=== PATIENT | female | born 1985 | race Caucasian/White ===

== ENCOUNTER 2020-04-28 14:01 | Emergency (ER) | payer OTHER, SELFPAY ==
[2020-04-28 14:03] VITALS: BP 145/105; PULSE 99; RESP 18; TEMP 36.8; O2SAT 97; BMI 29.7
--- NOTE | 2020-04-28 14:12 | XR_ITS ---
WS: [id number] Portable AP upright chest, 04/28/2020 Clinical Data: CP Comparison: Chest, 05/05/2006. Findings: No nodules, masses or effusions are seen. The heart is normal. The pulmonary vascularity is not increased. No pneumonia or pneumothorax is seen. 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 XR/XR chest 1V portable [id number] Impression: Negative chest.
--- NOTE | 2020-04-28 14:13 | ECG_ITS ---
[facility] Test Date: 2020-04-28 Pat Name: Gabrielle Coleman Department: Room: Gender: Female Tenterer: : 1985 Requested By: Praveen Fischer Order Number: [id number] Freddy MD: Stone Cheek M.D. Measurements Intervals [place] Rate: 88 P: 62 OK: 195 QRS: 48 QRSD: 97 T: 58 QT: 365 QTc: 442 Interpretive Statements SINUS RHYTHM No previous ECG available for comparison Electronically Signed On 04-28-2020 18:37:20 CDT by Stone Cheek M.D. [email or web address]
--- NOTE | 2020-04-28 14:21 | ED_ITS ---
HPI - Arrhythmia/Palpitations General: Chief Complaint: Arrhythmia/Palpitations Stated Complaint: cp/dizzyness/ heart racing Time Seen by Provider: 04/28/20 14:12 History of Present Illness: HPI narrative: She relates an episode of while sitting and eating today her heart started racing and she felt lightheaded and is gone on for a while and she states this is her third episode in the last 2 weeks. said that she possibly passed out while going to the bathroom the other day and she said she was laying in the floor and woke up.. Patient had a full hysterectomy. Family history of thyroid problems. Denies diabetes. Denies shortness of breath. Denies any bleeding or fluid loss exercise regularly drinks about 100 fluid ounces of water a day. Mom relates that after she takes warm bath which she takes often she usually feels dizzy upon standing. Has a smart watch which has EKG on she said EKG showed inconclusive results normally just shows tachycardia MD complaint: heart racing Onset (ago): week(s) Duration: intermittent Severity: mild Context: other (While eating) Associated symptoms: Reports other (Has stressful job); Deny anxiety, nausea or vomiting Review of Systems Const: Denies: fever(s), chills or body aches Eyes: Denies: change in vision or blurry vision ENMT: Denies: throat pain or nasal congestion Card: Reports: palpitations and irregular heart rhythm; Denies: chest pain or dyspnea on exertion Resp: Denies: dyspnea, productive cough or non-productive cough GI: Denies: abdominal pain, nausea or vomiting Musc: Denies: extremity pain Skin/Breast: Denies: rash Neuro: Reports: dizziness; Denies: headache(s) Psych: Denies: anxiety or depression Josh/Lymph: Denies: easy bruising Physical Exam Const: COMMON NORMALS: no acute distress, average body habitus and patient oriented x3 HENMT: COMMON NORMALS: normocephalic HEAD & SCALP: normal to inspection and normocephalic FACE & SINUS: normal facial exam Eye: COMMON NORMALS: conjunctivae normal GENERAL EYE: appearance normal, both eyes and all related structures CONJUNCTIVA: Yes conjunctivae normal Neck/C-Spine: COMMON NORMALS: no JVD Chest: COMMONS NORMALS: normal inspection of the chest Resp: COMMON NORMALS: normal respiratory effort and clear to auscultation bilaterally AUSCULTATION: clear to auscultation bilaterally Cardio: COMMON NORMALS: no JVD, regular rate and regular rhythm RATE: regular rate RHYTHM: regular rhythm GI: COMMON NORMALS: Normal to inspection, nondistended, normoactive bowel sounds present Extremity: COMMON NORMALS: normal to inspection and full ROM Neuro: COMMON NORMALS: patient oriented x3 Course Vital Signs: Vital signs: Vital Signs Temperature 98.2 F 04/28/20 14:03 Pulse Rate 79 04/28/20 16:40 Respiratory Rate 16 04/28/20 16:40 Blood Pressure 103/68 04/28/20 16:40 Pulse Oximetry 96 04/28/20 16:40 MDM - Arrhythmia/Palpitations Lab Data: Labs: Lab Results 04/28/20 04/28/20 04/28/20 Range/Units 14:38 14:38 14:38 WBC 6.1 (4.0-10.0) 10^3/ uL RBC 4.79 (4.1-5.3) 10^6/u L Hgb 14.6 (11.5-15.3) g/dL Hct 44.1 (37.0-47.0) % MCV 92.1 (81-99) fL MCH 30.5 (28.0-34.0) pg MCHC 33.1 (30.0-36.0) g/dL RDW 12.6 (12.1-15.1) % Plt Count 220 (130-400) 10^3/c mm MPV 11.1 H (7.4-10.4) fL Neut % (Auto) 55.4 % Lymph % (Auto) 36.1 % Jackson % (Auto) 6.9 % Eos % (Auto) 0.8 % Baso % (Auto) 0.5 % Neut # (Auto) 3.36 (1.8-7.7) 10^3/u L Lymph # (Auto) 2.2 (0.8-4.8) 10^3/u L Jackson # (Auto) 0.4 (0.2-0.9) 10^3/u L Eos # (Auto) 0.1 (0.0-0.8) 10^3/u L Baso # (Auto) 0.0 (0.0-0.1) 10^3/u L Nucleated RBC % (a uto) 0 % Nucleated RBCs # 0.0 /100WBC PT 13.10 (12.1-14.9) SECO NDS INR 0.96 (0.8-1.2) Sodium 143 (136-145) mmol/L Potassium 4.1 (3.5-5.1) mmol/L Chloride 103 (98-107) mmol/L Carbon Dioxide 28 (22-29) mmol/L Anion Gap 16.1 (5-19) BUN 16 (6-20) mg/dL Creatinine 0.8 (0.5-0.9) mg/dL GFR Calculation 82.6 L (90-130) mL/min Glucose 112 (65-115) mg/dL Calculated Osmolal ity 298 H (285-295) mOsm/k g Calcium 10.0 (8.5-10.5) mg/dL Total Bilirubin 0.3 (0.15-1.2) mg/dL AST 15 (0-32) U/L ALT 12 (0-33) U/L Alkaline Phosphata se 67 (35-105) IU/L Troponin T Baselin e (0-10) ng/L Total Protein 6.6 (6.6-8.7) g/dL Albumin 4.7 (3.5-5.2) g/dL Globulin 1.9 (1.3-4.6) g/dL TSH 1.47 (0.27-4.20) uIU/ mL Free T4 1.52 (0.82-1.77) ng/d L Free T3 3.3 (2.0-4.4) PG/ML Urine Color (Yellow) Urine Appearance (CLEAR) Urine pH (5-7) Ur Specific Gravit y (1.005-1.030) Urine Protein (Negative) Urine Glucose (UA) (Normal) Urine Ketones (Negative) Urine Blood (Negative) Urine Nitrate (Negative) Urine Bilirubin (Negative) Urine Urobilinogen (Negative) mg/dL Ur Leukocyte Judie ase (Negative) 04/28/20 04/28/20 Range/Units 14:38 14:38 WBC (4.0-10.0) 10^3/ uL RBC (4.1-5.3) 10^6/u L Hgb (11.5-15.3) g/dL Hct (37.0-47.0) % MCV (81-99) fL MCH (28.0-34.0) pg MCHC (30.0-36.0) g/dL RDW (12.1-15.1) % Plt Count (130-400) 10^3/c mm MPV (7.4-10.4) fL Neut % (Auto) % Lymph % (Auto) % Jackson % (Auto) % Eos % (Auto) % Baso % (Auto) % Neut # (Auto) (1.8-7.7) 10^3/u L Lymph # (Auto) (0.8-4.8) 10^3/u L Jackson # (Auto) (0.2-0.9) 10^3/u L Eos # (Auto) (0.0-0.8) 10^3/u L Baso # (Auto) (0.0-0.1) 10^3/u L Nucleated RBC % (a uto) % Nucleated RBCs # /100WBC PT (12.1-14.9) SECO NDS INR (0.8-1.2) Sodium (136-145) mmol/L Potassium (3.5-5.1) mmol/L Chloride (98-107) mmol/L Carbon Dioxide (22-29) mmol/L Anion Gap (5-19) BUN (6-20) mg/dL Creatinine (0.5-0.9) mg/dL GFR Calculation (90-130) mL/min Glucose (65-115) mg/dL Calculated Osmolal ity (285-295) mOsm/k g Calcium (8.5-10.5) mg/dL Total Bilirubin (0.15-1.2) mg/dL AST (0-32) U/L ALT (0-33) U/L Alkaline Phosphata se (35-105) IU/L Troponin T Baselin e 6 (0-10) ng/L Total Protein (6.6-8.7) g/dL Albumin (3.5-5.2) g/dL Globulin (1.3-4.6) g/dL TSH (0.27-4.20) uIU/ mL Free T4 (0.82-1.77) ng/d L Free T3 (2.0-4.4) PG/ML Urine Color Yellow (Yellow) Urine Appearance Clear (CLEAR) Urine pH 5 (5-7) Ur Specific Gravit y 1.010 (1.005-1.030) Urine Protein Neg (Negative) Urine Glucose (UA) Norm (Normal) Urine Ketones Negative (Negative) Urine Blood Neg (Negative) Urine Nitrate Negative (Negative) Urine Bilirubin Neg (Negative) Urine Urobilinogen Norm (Negative) mg/dL Ur Leukocyte Judie ase Negative (Negative) Discharge Plan Discharge Patient Disposition: Home Clinical Impression: Acute dehydration Condition: Stable Prescriptions: No Action No Known Home Medications RF: 0 Discharge Orders: Discharge Order (Routine); Ordered 04/28/20 Ordered By: Praveen Fischer Referrals: Elba Guillory FNP [Primary Care Provider] - Discharge Diet: Usual diet and As Directed Discharge Activity: Resume usual activity Patient Instructions: Dehydration (ED) Activity Restrictions/Additional Instructions: Follow-up with medical provider as directed. Take medications as prescribed. Return to the ER or your medical provider if condition worsens. Please read and understand discharge instructions. If any questions ask please. Cut back on coffee consumption increase water intake. Follow-up with your ADMINISTRATIVE OFFICE ASSISTANT as scheduled Discharge Date/Time: 04/28/20 16:40 Coding Level of Care Code ED Welder/Fabricator for Charlie Cortes Exam Comprehensive
[2020-04-28 14:50] LABS: Basophils % 0.5 %; Eosinophils # 0.1 10^3/uL (0.0-0.8); Eosinophils % 0.8 %; Hematocrit 44.1 % (37.0-47.0); Hemoglobin 14.6 g/dL (11.5-15.3); Lymphocytes # 2.2 10^3/uL (0.8-4.8); Lymphocytes % 36.1 %; Mean Corpuscular HGB Conc 33.1 g/dL (30.0-36.0); Mean Corpuscular Hemoglobin 30.5 pg (28.0-34.0); Mean Corpuscular Volume 92.1 fL (81-99); Mean Platelet Volume 11.1 fL (7.4-10.4); Monocytes # 0.4 10^3/uL (0.2-0.9); Monocytes % 6.9 %; Neutrophils # 3.36 10^3/uL (1.8-7.7); Neutrophils % 55.4 %; Nucleated Red Blood Cells % 0 %; Platelet Count 220 10^3/cmm (130-400); Red Blood Count 4.79 10^6/uL (4.1-5.3); Red Cell Distribution Width 12.6 % (12.1-15.1); White Blood Count 6.1 10^3/uL (4.0-10.0)
[2020-04-28 15:05] LABS: INR 0.96 (0.8-1.2)
[2020-04-28 15:09] VITALS: BP 124/78; PULSE 90
[2020-04-28 15:11] VITALS: BP 121/89; BP 131/77; PULSE 112; PULSE 94
[2020-04-28 15:11] LABS: Add Urine Microscopic? NO; Bilirubin Urine Neg (Negative); Blood Urine Neg (Negative); Glucose Urine UA Norm (Normal); Ketones Urine Negative (Negative); Leukocyte Esterase Urine Negative (Negative); Nitrate Urine Negative (Negative); Protein Urine Neg (Negative); Urine Appearance Clear (CLEAR); Urine Color Yellow (Yellow); Urobilinogen Urine Norm (Negative); pH Urine 5 (5-7)
[2020-04-28 15:12] LABS: Troponin(5th) Baseline 6 ng/L (0-10)
[2020-04-28] MEDS: sodium chloride 0.9% 1,000 ML 999 ML IV (15:18)
[2020-04-28 16:19] LABS: Alanine Aminotransferase 12 U/L (0-33); Albumin Level 4.7 g/dL (3.5-5.2); Alkaline Phosphatase 67 IU/L (35-105); Anion Gap 16.1 (5-19); Aspartate Amino Transferase 15 U/L (0-32); Blood Urea Nitrogen 16 mg/dL (6-20); Carbon Dioxide 28 mmol/L (22-29); Chloride 103 mmol/L (98-107); Free T4 Free Thyroxine 1.52 ng/dL (0.82-1.77); Globulin 1.9 g/dL (1.3-4.6); Glomerular Filtration Rate 82.6 mL/min (90-130); Glucose 112 mg/dL (65-115); Osmolality Calculated 298 mOsm/kg (285-295); Potassium 4.1 mmol/L (3.5-5.1); Sodium 143 mmol/L (136-145); T3 Free 3.3 PG/ML (2.0-4.4); Thyroid Stimulating Hormone 1.47 uIU/mL (0.27-4.20); Total Bilirubin 0.3 mg/dL (0.15-1.2); Total Protein 6.6 g/dL (6.6-8.7)
[2020-04-28 16:31] VITALS: BP 103/68; PULSE 80; RESP 8; O2SAT 96
[2020-04-28 16:40] VITALS: BP 103/68; PULSE 79; RESP 16; O2SAT 96
== END 2020-04-28 16:40 | disposition home or self-care (01) ==
PROVIDERS: Emergency Provider Nurse Practitioner Family; PCP Nurse Practitioner Family
DX: E86.0 Dehydration (principal)
CPT/HCPCS: 12345; 71045; 80053; 81003; 84439; 84443; 84481; 84484; 85025; 85610; 93005; 96360; 99283; J7030

== ENCOUNTER 2021-08-25 16:14 | Emergency (ER) | payer OTHER, SELFPAY ==
[2021-08-25 16:17] VITALS: BP 136/92; PULSE 93; RESP 16; TEMP 36.7; O2SAT 98; BMI 28.1
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
--- NOTE | 2021-08-25 17:53 | PC.NURSE ---
C-Collar removed by provider at this time.
[2021-08-25] MEDS: ibuprofen 200 mg Tablet 400 MG PO (17:57)
[2021-08-25] MEDS: acetaminophen 500 mg Tablet PO (17:57)
[2021-08-25 18:02] VITALS: BP 108/72; PULSE 83; RESP 16; O2SAT 96
== END 2021-08-25 18:03 | disposition home or self-care (01) ==
PROVIDERS: Emergency Provider Nurse Practitioner Family; PCP Nurse Practitioner Family
DX: S16.1XXA Strain of muscle, fascia and tendon at neck level, initial encounter (principal); V89.2XXA Person injured in unspecified motor-vehicle accident, traffic, initial encounter
CPT/HCPCS: 70450; 72125; 73110; 99283

== ENCOUNTER 2024-07-28 08:20 | Outpatient (RCR) | payer OTHER, SELFPAY | END 2024-08-14 23:59 | disposition home or self-care (01) | LOC: SPT 08:20 | PROVIDERS: Visit Provider Physician Assistant | DX: M17.11 Unilateral primary osteoarthritis, right knee (principal); M22.2X1 Patellofemoral disorders, right knee | CPT/HCPCS: 97110; 97161 ==

== ENCOUNTER 2024-08-15 06:00 | Outpatient (RCR) | payer OTHER, SELFPAY | END 2024-09-11 23:59 | disposition home or self-care (01) | LOC: SPT 06:00 | PROVIDERS: Visit Provider Physician Assistant | DX: M17.11 Unilateral primary osteoarthritis, right knee (principal); M22.2X1 Patellofemoral disorders, right knee | CPT/HCPCS: 97110 ==

== ENCOUNTER 2024-09-12 06:00 | Outpatient (RCR) | payer OTHER, SELFPAY | END 2024-10-12 23:59 | disposition home or self-care (01) | LOC: SPT 06:00 | PROVIDERS: Visit Provider Physician Assistant | DX: M17.11 Unilateral primary osteoarthritis, right knee (principal); M22.2X1 Patellofemoral disorders, right knee | CPT/HCPCS: 97110; 97164 ==